=== PATIENT | male | born 1970 | race Caucasian/White ===

== ENCOUNTER 2018-12-21 10:01 | Emergency (ER) | payer BC ==
--- NOTE | 2018-12-21 10:09 | EDM.PDOC ---
ED HPI GENERAL MEDICAL PROBLEM - General Chief Complaint: Respiratory Problem Stated Complaint: COUGH Time Seen by Provider: 12/21/18 10:04 Source of Information: Reports: Patient History Limitations: Reports: No Limitations - History of Present Illness INITIAL COMMENTS - FREE TEXT/NARRATIVE: HISTORY AND PHYSICAL: History of present illness: Patient is a 48-year-old male who presents to the emergency room with complaints of cough, sore throat and sinus congestion. States approximately 3 days ago he had a sore throat with sinus congestion, light cough starting yesterday and pain across his chest with coughing. Denies any shortness of breath, head injury/headache, change in vision or near syncope/syncope. Denies any abdominal pain, nausea, vomiting, diarrhea, constipation or dysuria. He has been eating and drinking appropriately. Review of systems: As per history of present illness and below otherwise all systems reviewed and negative. Past medical history: As per history of present illness and as reviewed below otherwise noncontributory. Surgical history: As per history of present illness and as reviewed below otherwise noncontributory. Social history: See social history for further information Family history: As per history of present illness and as reviewed below otherwise noncontributory. Physical exam: General: Well-developed and well-nourished 48 showed male. Alert and oriented. Nontoxic appearing and in no acute distress. HEENT: Atraumatic, normocephalic, pupils equal and reactive bilaterally, negative for conjunctival pallor or scleral icterus, mucous membranes moist, TMs normal bilaterally, mild erythema to the posterior oropharynx without exudate, neck supple, nontender, trachea midline. No drooling or trismus noted. No meningeal signs. No hot potato voice noted. Lungs: Clear to auscultation, breath sounds equal bilaterally, chest nontender. Heart: S1S2, regular rate and rhythm without overt murmur Abdomen: Soft, nondistended, nontender. Negative for masses or hepatosplenomegaly. Negative for costovertebral tenderness. Pelvis: Stable nontender. Genitourinary: Deferred. Rectal: Deferred. Skin: Intact, warm, dry. No lesions or rashes noted. Extremities: Atraumatic, negative for cords or calf pain. Neurovascular unremarkable. Neuro: Awake, alert, oriented. Cranial nerves II through XII unremarkable. Cerebellum unremarkable. Motor and sensory unremarkable throughout. Exam nonfocal. Notes: Patient does have a slightly elevated blood pressure on examination today. He states he does not have any history of hypertension. He is agreeable for lab work and further imaging. Lab work is unremarkable. Negative influenza and strep. Chest x-ray shows no acute findings. I did offer him admission for his initial concern of chest tightness. He declines he states that he would like to be discharged to home. Supportive care measures were reviewed and discussed. Voices understanding and is agreeable to plan of care. Denies any further questions or concerns at this time. Diagnostics: CBC, CMP, troponin, influenza, strep, 2 view chest x-ray, EKG Therapeutics: None Prescription: Z-Peter Phenergan with codeine Pro-air Impression: Bronchitis Plan: 1. Take the medications as directed. 2. Follow-up with your primary care provider as we discussed. 3. Return to the ED as needed and as discussed. Definitive disposition and diagnosis as appropriate pending reevaluation and review of above. Thoracic Pain Score (Numeric/FACES): 3 - Related Data Allergies Allergy/AdvReac Type Severity Reaction Status Date / Time No Known Allergies Allergy Verified 12/21/18 10:08 Home Meds: Home Meds . [No Known Home Meds] 12/21/18 [History] ED ROS GENERAL - Review of Systems Review Of Systems: ROS reveals no pertinent complaints other than HPI. ED EXAM, GENERAL - Physical Exam Exam: See Below (See dictation) Course - Vital Signs Last Recorded V/S: Last Vital Signs Temp 97.6 F 12/21/18 10:06 Pulse 84 12/21/18 10:06 Resp 18 12/21/18 10:06 BP 137/106 H 12/21/18 10:06 Pulse Ox 97 12/21/18 10:06 - Orders/Labs/Meds Orders: Active Orders 24 hr Category Date Time Status EKG Documentation Completion [RC] STAT Care 12/21/18 10:11 Active CULTURE STREP A CONFIRMATION [] Stat Lab 12/21/18 10:13 Results STREP SCRN A RAPID W CULT CONF [RM] Stat Lab 12/21/18 10:13 Results Labs: Laboratory Tests 12/21/18 12/21/18 Range/Units 10:22 10:22 WBC 7.79 (4.0-11.0) K/uL RBC 5.27 (4.50-5.90) M/uL Hgb 16.8 (13.0-17.0) g/dL Hct 47.5 (38.0-50.0) % MCV 90.1 (80.0-98.0) fL MCH 31.9 (27.0-32.0) pg MCHC 35.4 (31.0-37.0) g/dL RDW Std Deviation 45.3 (28.0-62.0) fl RDW Coeff of Julia 14 (11.0-15.0) % Plt Count 240 (150-400) K/uL MPV 10.70 (7.40-12.00) fL Add Manual Diff YES Neutrophils % (Manual) 67 (48.0-80.0) % Band Neutrophils % 2 % Lymphocytes % (Manual) 19 (16.0-40.0) % Monocytes % (Manual) 10 (0.0-15.0) % Eosinophils % (Manual) 2 (0.0-7.0) % Nucleated RBC % 0.0 /100WBC Absolute Seg Neuts 5.2 (1.4-5.7) Band Neutrophils # 0.2 Lymphocytes # (Manual) 1.5 (0.6-2.4) Monocytes # (Manual) 0.8 (0.0-0.8) Eosinophils # (Manual) 0.2 (0.0-0.7) Nucleated RBCs # 0 K/uL Sodium 140 (136-148) mmol/L Potassium 4.1 (3.5-5.1) mmol/L Chloride 102 (98-107) mmol/L Carbon Dioxide 27.5 (21.0-32.0) mmol/L BUN 20 H (7.0-18.0) mg/dL Creatinine 1.3 (0.8-1.3) mg/dL Est Cr Clr Drug Dosing 73.31 mL/min Estimated GFR (MDRD) 59.4 ml/min Glucose 95 (74-106) mg/dL Calcium 9.0 (8.5-10.1) mg/dL Total Bilirubin 0.7 (0.2-1.0) mg/dL AST 48 H (15-37) IU/L ALT 89 H (14-63) IU/L Alkaline Phosphatase 69 (46-116) U/L Troponin I < 0.050 (0.000-0.056) ng/mL Total Protein 7.4 (6.4-8.2) g/dL Albumin 3.8 (3.4-5.0) g/dL Globulin 3.6 (2.6-4.0) g/dL Albumin/Globulin Ratio 1.1 (0.9-1.6) Departure - Departure Time of Disposition: 11:22 Disposition: Home, Self-Care 01 Clinical Impression: Acute bronchitis Qualifiers: Bronchitis organism: unspecified organism Qualified Code(s): J20.9 - Acute bronchitis, unspecified - Discharge Information Instructions: Acute Bronchitis, Adult, [id number] Referrals: PCP,None [Primary Care Provider] - Forms: ED Department Discharge Additional Instructions: The following information is given to patients seen in the emergency department who are being discharged to home. This information is to outline your options for follow-up care. We provide all patients seen in our emergency department with a follow-up referral. The need for follow-up, as well as the timing and circumstances, are variable depending upon the specifics of your emergency department visit. If you don't have a primary care physician on staff, we will provide you with a referral. We always advise you to contact your personal physician following an emergency department visit to inform them of the circumstance of the visit and for follow-up with them and/or the need for any referrals to a consulting specialist. The emergency department will also refer you to a specialist when appropriate. This referral assures that you have the opportunity for follow-up care with a specialist. All of these measure are taken in an effort to provide you with optimal care, which includes your follow-up. Under all circumstances we always encourage you to contact your private physician who remains a resource for coordinating your care. When calling for follow-up care, please make the office aware that this follow-up is from your recent emergency room visit. If for any reason you are refused follow-up, please contact the [facility] Emergency Department at and asked to speak to the emergency department charge nurse. [facility] [address] [place] [address] [id number] [address] [place] [address] 1. Take the medications as directed. 2. Follow-up with your primary care provider as we discussed. 3. Return to the ED as needed and as discussed. - My Orders Last 24 Hours: My Active Orders 12/21/18 10:11 EKG Documentation Completion [RC] STAT 12/21/18 10:13 CULTURE STREP A CONFIRMATION [RM] Stat STREP SCRN A RAPID W CULT CONF [RM] Stat - Assessment/Plan Last 24 Hours: My Active Orders 12/21/18 10:11 EKG Documentation Completion [RC] STAT 12/21/18 10:13 CULTURE STREP A CONFIRMATION [RM] Stat STREP SCRN A RAPID W CULT CONF [RM] Stat
--- NOTE | 2018-12-21 10:59 | CR ---
EXAMINATION: Two-view chest (PA and Lateral views). HISTORY: Shortness of breath. FINDINGS: The trachea is midline. The cardiomediastinal silhouette is within normal limits. No pulmonary infiltrates, effusions or pneumothorax. Osseous structures appear unremarkable. IMPRESSION: No acute cardiopulmonary process.
[2018-12-21 11:07] LABS: CHLORIDE,CL 102 mmol/L (98-107); SODIUM,NA 140 mmol/L (136-148)
== END 2018-12-21 11:31 | disposition home or self-care (01) ==
LOC: MW.ED 10:01
DX: J20.9 Acute bronchitis, unspecified (principal)
CPT/HCPCS: 36415; 71046; 71046-26; 80053; 84484; 85025; 87081; 87804; 87880-QW; 93005; 99284-25

== ENCOUNTER 2023-04-08 06:45 | Day surgery (SDC) | payer BC ==
[~2023-04-08 06:45] MED LIST: Acetaminophen 1,000 MG in Premix Bag 1 BAG IV SCH; Lactated Ringers 1,000 ML IV SCH; Pregabalin 75 MG Cap PO SCH; Scopolamine 1.5 MG Transdermal Patch TOP ONE; ceFAZolin 2 GM in Sodium Chloride 0.9% 50 ML IV ONE
[2023-04-08] MEDS ORDERED: Ropivacaine 0.5% 5 MG/ML 30 ML SDV ONE (07:13)
[2023-04-08] MEDS ORDERED: Bupivacaine 25%/EPINEPHrine/PF 30 ML ONE (07:13)
[2023-04-08] MEDS ORDERED: Bupivacaine 0.5% 30 ML SDV ONE (07:14)
[2023-04-08] MEDS ORDERED: Rocuronium Bromide 50 MG/5 ML Syringe ONE (07:21)
[2023-04-08] MEDS ORDERED: Sugammadex Sodium 200 MG/2 ML VIAL ONE (07:21)
[2023-04-08] MEDS ORDERED: Ondansetron 4 MG/2 ML SDV ONE (07:21)
[2023-04-08] MEDS ORDERED: ceFAZolin 2 GM Vial ONE (07:21)
[2023-04-08] MEDS ORDERED: Lidocaine 2% 5 ML SDV ONE (07:21)
[2023-04-08] MEDS ORDERED: Propofol 200 MG/20 ML SDV ONE ×2 (07:21→07:56)
[2023-04-08] MEDS ORDERED: Dexamethasone 4 MG/ML 5 ML MDV ONE (07:21)
[2023-04-08] MEDS ORDERED: Water For Injection, Sterile 20 ML ONE ×2 (07:22→07:31)
[2023-04-08] MEDS ORDERED: fentaNYL 100 MCG/2 ML SDV ONE (07:22)
[2023-04-08] MEDS ORDERED: Dexmedetomidine 200 MCG/2 ML SDV ONE (07:31)
[2023-04-08] MEDS ORDERED: Morphine 2 MG/ML SYRINGE IVPUSH PRN (07:56)
[2023-04-08] MEDS ORDERED: Naloxone 0.4 MG/ML SDV IVPUSH PRN (07:56)
[2023-04-08] MEDS ORDERED: droPERidol 5 MG/2 ML SDV IVPUSH PRN (07:56)
[2023-04-08] MEDS ORDERED: fentaNYL 50 MCG/ML SDV IVPUSH PRN (07:56)
[2023-04-08] MEDS ORDERED: Ondansetron 4 MG/2 ML SDV IVPUSH PRN (07:56)
[2023-04-08] MEDS ORDERED: Metoclopramide 10 MG/2 ML SDV IVPUSH PRN (07:56)
[2023-04-08] MEDS ORDERED: HYDROmorphone 1 MG/ML Syringe IVPUSH PRN (07:56)
[2023-04-08] MEDS ORDERED: Albuterol 0.083% 2.5 MG/3 ML Neb Soln NEB PRN (07:56)
[2023-04-08] MEDS ORDERED: ePHEDrine 50 MG/ML SDV ONE (08:12)
== END 2023-04-08 11:19 | disposition home or self-care (01) ==
LOC: MW.SDS 06:45
PROVIDERS: ATTEND Surgery
DX: K40.90 Unilateral inguinal hernia, without obstruction or gangrene, not specified as recurrent (principal); E66.9 Obesity, unspecified; Z86.39 Personal history of other endocrine, nutritional and metabolic disease
CPT/HCPCS: 49650; 64488; A9270; J0690; J1100; J2704; J2795; J3010; J3490; J7120; J2405